=== PATIENT | male | born 1980 | race Hispanic/Latino ===

== ENCOUNTER → 2022-07-21 | Outpatient (CLI) | LOC: M SOG 08:40 | PROVIDERS: ATTEND Orthopaedic Surgery | DX: M25.562 Pain in left knee (principal) ==

== ENCOUNTER → 2022-08-12 | Outpatient (CLI) | payer OTHER | LOC: M PLAIMG 12:58 | PROVIDERS: ATTEND Orthopaedic Surgery | DX: M25.562 Pain in left knee (principal) ==

== ENCOUNTER → 2022-09-21 | Outpatient (CLI) | payer OTHER | LOC: M SOG 09:47 | PROVIDERS: ATTEND Physician Assistant | DX: M25.521 Pain in right elbow (principal) ==

== ENCOUNTER 2023-04-21 09:55 | Emergency (ER) | payer OTHER ==
[~2023-04-21] VITALS: Ht 170.2 cm; Wt 111.0 kg
[2023-04-21 11:26] VITALS: BP 147/81; TEMP 96.6; O2SAT 98
== END 2023-04-21 11:20 | disposition home or self-care (01) ==
LOC: M ED 09:55
DX: R07.9 Chest pain, unspecified (principal)

== ENCOUNTER 2024-02-04 07:05 | Day surgery (SDC) | payer OTHER ==
[~2024-02-04] VITALS: Ht 170.2 cm; Wt 108.3 kg
[~2024-02-04 07:05] MED LIST: ESTROGEN BLOCKER PO; TEST200I14 IM
[2024-02-04] MEDS ORDERED: LIDOCAINE 1% SDV 5ML VIAL SC PRN (07:30)
[2024-02-04] MEDS: NS 1,000 ML IV SCH (07:59)
[2024-02-04] MEDS ORDERED: ONDANSETRON 4MG 2ML VIAL As Ordered ONE (08:14)
[2024-02-04] MEDS ORDERED: LIDOCAINE 2% 100MG/5ML SDV (FOR ANES.) As Ordered ONE (08:14)
[2024-02-04] MEDS ORDERED: dexmedeTOMIDine (4MCG/ML)200MCG/50ML BTL (PRECEDEX) As Ordered ONE (08:14)
[2024-02-04] MEDS ORDERED: ACETAMINOPHEN 1000MG 100ML IV BAG As Ordered ONE (08:14)
[2024-02-04] MEDS ORDERED: propofoL 200 MG/20 ML VIAL As Ordered ONE (08:14)
[2024-02-04] MEDS ORDERED: fentaNYL 100 MCG/2 ML INJECTION As Ordered ONE (08:15)
[2024-02-04] MEDS ORDERED: MIDAZOLAM INJ 2MG/2ML VIAL As Ordered ONE (08:15)
[2024-02-04] MEDS ORDERED: ceFAZolin SOD 1 GM in DEXTROSE 5% (D5W) ADV/MINI-BAG 50 ML IV ONE (08:35)
[2024-02-04] MEDS ORDERED: ceFAZolin 2 GM/D5W 50 ML IV BAG As Ordered ONE (08:41)
[2024-02-04] MEDS: ceFAZolin SOD 2 GM in IV 1 EA IV ONE (09:00)
[2024-02-04] MEDS: LIDOCAINE W/EPINEPHRINE 1% 20ML VIAL As Ordered ONE (09:48)
[2024-02-04] MEDS ORDERED: NS 1,000 ML IV SCH (10:15)
[2024-02-04] MEDS ORDERED: ONDANSETRON 4MG 2ML VIAL IV PRN (10:15)
[2024-02-04] MEDS ORDERED: oxyCODONE 5MG TAB PO PRN (10:15)
[2024-02-04] MEDS ORDERED: fentaNYL 100 MCG/2 ML INJECTION IV PRN (10:15)
[2024-02-04 11:11] VITALS: BP 135/63; TEMP 97.6; O2SAT 96
== END 2024-02-04 11:26 | disposition home or self-care (01) ==
LOC: M SDC 07:05
PROVIDERS: ATTEND Orthopaedic Surgery Hand Surgery
DX: G56.21 Lesion of ulnar nerve, right upper limb (principal); E78.5 Hyperlipidemia, unspecified; G47.30 Sleep apnea, unspecified; Z79.899 Other long term (current) drug therapy
CPT/HCPCS: 29999; 93005; J0131; J0690; J1100; J2250; J2405; J3010

== ENCOUNTER → 2025-01-19 | Day surgery (SDC) | payer OTHER ==
[~2025-01-19] VITALS: Ht 170.2 cm; Wt 97.5 kg
[~2025-01-19] MED LIST changes: +HYDROMORPHONE HCL 0.5 MG/0.5 ML SYRINGE IV PRN; +KETOROLAC 30 MG/ML 1 ML VIAL As Ordered ONE; +LIDOCAINE 2% 100 MG/5 ML SDV (FOR ANES.) As Ordered ONE; +LR 1,000 ML IV SCH; +ONDANSETRON 4MG 2ML VIAL As Ordered ONE; +PERC5TAB12 PO; +TIRZ5PEN3 SQ; +dexAMETHasone 4 MG/ML 1 ML VIAL As Ordered ONE; +dexmedeTOMIDine (4 MCG/ML) 200 MCG/50 ML BTL As Ordered ONE
[2025-01-19] MEDS: ceFAZolin SOD 2 GM IV ONCE IV ONE (12:36)
[2025-01-19] MEDS: LIDOCAINE W/EPINEPHrine 1% 20 ML VIAL As Ordered ONE (13:21)
[2025-01-19 14:52] VITALS: BP 127/69; TEMP 97.4; O2SAT 99
== END | disposition home or self-care (01) ==
LOC: M SDC 08:54
PROVIDERS: ATTEND Orthopaedic Surgery Hand Surgery
DX: G56.22 Lesion of ulnar nerve, left upper limb (principal); G47.30 Sleep apnea, unspecified
CPT/HCPCS: 29999; J0688; J1100; J1885; J2405; J3010